=== PATIENT | male | born 1975 | race Caucasian/White ===

== ENCOUNTER → 2017-12-12 07:40 | Outpatient (CLI) | payer OTHER, SELFPAY ==
--- NOTE | 2017-12-12 | DI.MRI.S_ITS ---
PROCEDURE: MR HUMERUS RT WO CON INDICATIONS: Unspecified disorder of synovium and tendon, right TECHNIQUE: Noncontrast coronal and sagittal T1 spin echo and STIR; axial T1 spin echo and T2 fast spin echo with fat saturation through the right humerus. COMPARISON: None. FINDINGS: Image quality: Partially degraded by motion artifact. Bones: There is mild ill-defined T2 signal elevation within the greater tuberosity of the humeral head, consistent with degenerative marrow edema. The visualized bone marrow demonstrates otherwise normal signal on all sequences. The overlying cortex appears intact. No fractures lines or intra-osseous lesions. Soft tissues: There is a small amount of fluid within the subacromial bursa. The scanned muscles demonstrate normal overall bulk and internal signal. Subcutaneous tissues appear normal as well. No soft tissue masses are present. IMPRESSION: 1. Subacromial bursitis. 2. Degenerative marrow edema within the greater tuberosity of the humeral head. 3. No evidence of tendon tear. If there is clinical evidence for rotator cuff tear, shoulder MRI is recommended for further assessment. Dictated by: Don Patel M.D. on 12/12/2017 at 9:30 Approved by: Don Patel M.D. on 12/12/2017 at 9:32
== END ==
PROVIDERS: Visit Provider General Practice
DX: M75.51 Bursitis of right shoulder (principal)
CPT/HCPCS: 73218